=== PATIENT | female | born 1945 | race Caucasian/White ===

== ENCOUNTER → 2018-09-11 | Outpatient (CLI) | payer MEDICARE, BC ==
--- NOTE | 2018-09-11 14:42 | DIREP ---
CORRECTION Corrected on: 09/11/2018; PROCEDURE:MRI JOINT LOWER EXTREMITY-RT W/O COMPARISON:None. INDICATIONS:HIP PAIN X 6 MONTHS TECHNIQUE:Routine noncontrast images. FINDINGS: No evidence of bone edema to indicate occult fracture, or aggressive marrow process. Femoral heads are unremarkable in appearance. No evidence of avascular necrosis. No significant fluid within the joint. Hysterectomy. Minimal increased signal in keeping with greater trochanter bursitis, right side. Focal tear is not seen. Fluid collection is not identified CONCLUSION:Mild right greater trochanter bursitis. No fracture, no evidence of avascular necrosis. Dictated by: Fabricio Pickering MD on 09/11/2018 at 02:31 PM Dictated by: Fabricio Pickering MD on 09/11/2018 at 04:16 PM delete skull from conclusion
== END | disposition home or self-care (01) ==
LOC: MRI 12:52
PROVIDERS: ATTEND Orthopaedic Surgery
DX: M70.61 Trochanteric bursitis, right hip (principal)
CPT/HCPCS: 73721